=== PATIENT | male | born 1970 | race Caucasian/White ===

== ENCOUNTER 2016-09-30 02:04 | Emergency (ER) | payer BC ==
--- NOTE | 2016-09-30 10:17 | NUR ---
Received [facility] person referral. Attempted to contact pt. No answer, voice mail message left.
--- NOTE | 2016-09-30 10:24 | NUR ---
Pt called [facility] back. States he has not contacted the [facility] yet for treatment. States he is unsure if he will. Pt aware of [facility]. Pt states he has been to treatment before. Deny any needs at this time.
--- NOTE | 2016-10-04 19:20 | ER ---
ADMIT: 09/30/2016 RM/LOC: ER [facility] MR#: [id number] [address] [facility] [address] [place] [id number] FRANCES MCLAIN [address] [place] [address] Emergency Room Report SEX: M AGE: 46 : 1970 DATE: 09/30/2016 Patient is a 46-year-old male works at the [employer], been through [facility] alcohol detox in the past, now back to drinking two gallons of vodka a week. Admits to nausea, diarrhea, diaphoresis. Denies any hallucinations or extreme tremulousness. Received gabapentin, Ativan, Zofran with improvement. CT abdomen shows no evidence of bowel obstruction. [facility] labs remarkable for lipase 150, alcohol 296, negative tox screen. Follow up [facility] this week for evaluation for inpatient care. Patient discharged with gabapentin 400 mg b.i.d. #60. Loi Whaley MD/ rodrigo JOB #: [id number] CC: Loi Whaley MD, Attending Physician [facility] Physician, Family Physician . [facility]
== END 2016-09-30 04:15 | disposition home or self-care (01) ==
LOC: ER 02:04
DX: F10.10 Alcohol abuse, uncomplicated (principal); F17.210 Nicotine dependence, cigarettes, uncomplicated; F32.9 Major depressive disorder, single episode, unspecified; Z88.0 Allergy status to penicillin; Z79.899 Other long term (current) drug therapy